=== PATIENT | male | born 1960 | race Caucasian/White ===

== ENCOUNTER 2021-03-31 05:36 | Inpatient (IN) ==
[2021-03-24 11:21] LABS: Basophils % 0.4 % (0.0-0.8); Eosinophils # 0.1 10*3/uL (0.0-0.87); Hematocrit 44.7 VOL% (42.0-52.0); Hemoglobin 15.1 GM/DL (14.0-18.0); Immature Granulocytes % 0.4 %; Immature Granulocytes Absolute 0.03 #; Lymphocytes # 1.5 10*3/uL (1.4-4.0); Lymphocytes % 21.7 % (21.2-54.2); Mean Corpuscular HGB Conc 33.8 GM/DL (32-36); Monocytes % 8.4 % (1.7-12.7); Neutrophils % 68.1 % (38.7-73.9); Platelet Count 324 T/CUMM (130-400); Red Blood Count 5.02 MC/CUMM (3.8-5.5); Red Cell Distribution Width 12.5 % (9.3-17.3); White Blood Count 6.9 T/CUMM (4-12)
[2021-03-24 11:29] LABS: Calcium 9.6 MG/DL (8.5-10.1); Osmolality,Calculated 276.5 MOS/KG (273-304); Potassium 4.4 MMOL/L (3.5-5.1)
[2021-03-31] MEDS ORDERED: ERTAPENEM 1,000 MG in SODIUM CHLORIDE 0.9% 100 ML IV ONE (06:00)
[2021-03-31] MEDS ORDERED: DEXMEDETOMIDINE 200 MCG/2 ML VIAL ONE (06:13)
[2021-03-31] MEDS ORDERED: FAMOTIDINE 20 MG TABLET PO ONE (06:16)
[2021-03-31] MEDS ORDERED: LACTATED RINGERS 1,000 ML IV SCH (06:30)
[2021-03-31] MEDS ORDERED: ROPIVACAINE 0.5% 30 ML VIAL ONE (06:30)
[2021-03-31] MEDS ORDERED: DEXAMETHASONE 4 MG/1 ML VIAL ONE (06:30)
[2021-03-31] MEDS ORDERED: LIDOCAINE 1% 5 ML VIAL ONE (06:30)
[2021-03-31] MEDS ORDERED: TISSUE ADHESIVE 1 EACH APPLICATOR TOP ONE (06:40)
[2021-03-31] MEDS ORDERED: MIDAZOLAM 2 MG/2 ML VIAL ONE (06:53)
[2021-03-31] MEDS ORDERED: propofoL 200 MG/20 ML VIAL IV ONE (07:22)
[2021-03-31] MEDS ORDERED: ROCURONIUM 50 MG/5 ML VIAL IV ONE ×2 (07:22→09:21)
[2021-03-31] MEDS ORDERED: SUCCINYLCHOLINE 200 MG/10 ML VIAL ONE (07:22)
[2021-03-31] MEDS ORDERED: LIDOCAINE 2% 5 ML VIAL ONE (07:22)
[2021-03-31] MEDS ORDERED: fentaNYL 100 MCG/2 ML VIAL ONE (07:27)
[2021-03-31] MEDS ORDERED: PHENYLEPHRINE 10 MG/1 ML VIAL IV ONE (07:30)
[2021-03-31] MEDS ORDERED: SODIUM CHLORIDE 0.9% 100 ML IV ONE (07:31)
[2021-03-31] MEDS ORDERED: ONDANSETRON 4 MG/2 ML VIAL ONE (07:37)
[2021-03-31] MEDS ORDERED: LACTATED RINGERS 1,000 ML IV ONE (08:06)
[2021-03-31] MEDS ORDERED: ACETAMINOPHEN INJ 1,000 MG/100 ML VIAL IV ONE (08:23)
[2021-03-31] MEDS ORDERED: INDOCYANINE GREEN 25 MG VIAL IV ONE (08:39)
[2021-03-31] MEDS ORDERED: SUGAMMADEX 200 MG/2 ML VIAL IV ONE (12:20)
[2021-03-31] MEDS ORDERED: HYDROmorphone 2 MG/1 ML VIAL IV PRN ×2 (12:27→12:38)
[2021-03-31] MEDS ORDERED: ONDANSETRON 4 MG/2 ML VIAL IV PRN (12:38)
[2021-03-31 13:15] LABS: Basophils % 0.1 % (0.0-0.8); Hematocrit 40.6 VOL% (42.0-52.0); Hemoglobin 13.6 GM/DL (14.0-18.0); Immature Granulocytes % 0.2 %; Immature Granulocytes Absolute 0.03 #; Lymphocytes # 0.7 10*3/uL (1.4-4.0); Mean Corpuscular HGB Conc 33.5 GM/DL (32-36); Mean Corpuscular Volume 88.8 FL (87-102); Mean Platelet Volume 9.4 FL (9.6-12.0); Neutrophils % 90.7 % (38.7-73.9); Platelet Count 291 T/CUMM (130-400); Red Blood Count 4.57 MC/CUMM (3.8-5.5); Red Cell Distribution Width 12.5 % (9.3-17.3); White Blood Count 12.2 T/CUMM (4-12)
[2021-03-31] MEDS ORDERED: PROMETHAZINE 25 MG/1 ML VIAL ONE (13:17)
[2021-03-31] MEDS ORDERED: PROMETHAZINE INJ 12.5 MG in SODIUM CHLORIDE 0.9% 50 ML IV ONE (13:20)
[2021-03-31 13:28] LABS: Calcium 8.7 MG/DL (8.5-10.1); Osmolality,Calculated 276.7 MOS/KG (273-304); Potassium 3.9 MMOL/L (3.5-5.1)
[2021-03-31 13:50] LABS: Band Neutrophils 3 % (0-10); Lymphocytes 5 % (20-55); Platelet Estimate Normal; Segmented Neutrophils 88 % (50-85); Total Cells Counted 100
[2021-03-31] MEDS: KETOROLAC 15 MG/1 ML VIAL IV SCH ×2 (14:23→19:23)
[2021-03-31] MEDS: LACTATED RINGERS 1,000 ML IV SCH (19:23)
[2021-03-31] MEDS: ALVIMOPAN 12 MG CAPSULE PO SCH (20:29)
[2021-04-01] MEDS: KETOROLAC 15 MG/1 ML VIAL IV SCH ×4 (01:06→20:42)
[2021-04-01 05:24] LABS: Basophils % 0.1 % (0.0-0.8); Eosinophils % 0.1 % (0.00-10.9); Hematocrit 38.4 VOL% (42.0-52.0); Hemoglobin 13.2 GM/DL (14.0-18.0); Immature Granulocytes % 0.3 %; Immature Granulocytes Absolute 0.03 #; Lymphocytes # 1.1 10*3/uL (1.4-4.0); Lymphocytes % 12.3 % (21.2-54.2); Mean Corpuscular HGB Conc 34.4 GM/DL (32-36); Mean Corpuscular Volume 89.3 FL (87-102); Mean Platelet Volume 10.2 FL (9.6-12.0); Monocytes % 10.7 % (1.7-12.7); Neutrophils % 76.5 % (38.7-73.9); Platelet Count 241 T/CUMM (130-400); Red Cell Distribution Width 12.4 % (9.3-17.3); White Blood Count 8.9 T/CUMM (4-12)
[2021-04-01 05:31] LABS: Calcium 8.8 MG/DL (8.5-10.1); Osmolality,Calculated 274.5 MOS/KG (273-304); Potassium 3.6 MMOL/L (3.5-5.1)
[2021-04-01] MEDS: LACTATED RINGERS 1,000 ML IV SCH ×3 (06:11→18:30)
[2021-04-01] MEDS ORDERED: ENOXAPARIN 40 MG/0.4 ML SYRINGE SUBCUT SCH ×2 (06:30→09:00)
[2021-04-01] MEDS: ALVIMOPAN 12 MG CAPSULE PO SCH ×2 (09:18→20:53)
[2021-04-01] MEDS: ENOXAPARIN 40 MG/0.4 ML SYRINGE SUBCUT SCH (20:42)
[2021-04-02] MEDS: KETOROLAC 15 MG/1 ML VIAL IV SCH ×4 (03:22→21:09)
[2021-04-02] MEDS: LACTATED RINGERS 1,000 ML IV SCH (05:08)
[2021-04-02] MEDS: ALVIMOPAN 12 MG CAPSULE PO SCH ×2 (08:22→21:09)
[2021-04-02] MEDS ORDERED: ROSUVASTATIN 10 MG TABLET PO SCH (21:00)
[2021-04-02] MEDS: ENOXAPARIN 40 MG/0.4 ML SYRINGE SUBCUT SCH (21:09)
[2021-04-03] MEDS: KETOROLAC 15 MG/1 ML VIAL IV SCH ×2 (01:42→08:49)
[2021-04-03] MEDS: ALVIMOPAN 12 MG CAPSULE PO SCH (08:49)
[2021-04-03] MEDS ORDERED: lisinopriL 10 MG TABLET PO SCH (09:00)
[2021-04-03 09:37] VITALS: BP 144/77
== END 2021-04-03 11:18 | disposition home or self-care (01) | DRG 331 ==
LOC: N.OR 05:36 → N.SDSINP 05:38 → N.2E 14:53
PROVIDERS: ADMIT Student in an Organized Health Care Education/Training Program; ATTEND Student in an Organized Health Care Education/Training Program